=== PATIENT | female | born 1985 | race Caucasian/White ===

== ENCOUNTER 2024-07-26 11:00 | Emergency (ER) | payer BC, SELFPAY ==
[2024-07-26 11:00] VITALS: BMI 22.8
[2024-07-26 11:19] VITALS: BP 122/74; PULSE 77; RESP 18; TEMP 36.7; O2SAT 99
--- NOTE | 2024-07-26 11:29 | EDNOTE_ITS ---
<Statement entered by Jen Galvez MD - 07/26/24 17:53> As co-signing physician, I was present and available for consult prn. I concur with the plan and care as documented by the midlevel provider. ED Eye Problem RME/HPI General Chief complaint: Eye Problems Stated complaint: POKED IN RIGHT EYE LAST NIGHT Time Seen by Provider: 07/26/24 11:19 Arrival date/time: 07/26/24 11:00 38-year-old female presents emerged part today stating she was poked in the right eye last night by her child accidentally with his fingernail she reports right eye irritation today Limitations: no limitations Related Data Previous Rx's ?Medication ?Instructions ?Recorded tobramycin 0.3 % eye drops 2 drp ophthalmic (eye) Q4H 5 days 07/26/24 #5 mL Allergies Allergy/AdvReac Type Severity Reaction Status Date / Time hydrocodone [From Vicodin] Allergy Severe Shakiness Verified 07/26/24 11:02 Review of Systems Review of Systems Systems Reviewed: All systems reviewed, normal except as documented Constitutional Constitutional: Reports system reviewed and no additional complaints, except as documented, Denies fever(s) and Denies headache(s) Eyes Eyes: Reports system reviewed and no additional complaints, except as documented, Denies blurry vision and Reports irritation ENT Ears, Nose, Mouth, and Throat: Reports system reviewed and no additional complaints, except as documented, Denies headache(s), Denies nasal congestion and Denies nasal discharge Cardiovascular Cardiovascular: Reports system reviewed and no additional complaints, except as documented, Denies chest pain and Denies dyspnea Respiratory Respiratory: Reports system reviewed and no additional complaints, except as documented, Denies chest congestion, Denies cough and Denies dyspnea Gastrointestinal Gastrointestinal: Reports system reviewed and no additional complaints, except as documented and Denies abdominal pain Integumentary/Breasts Skin/Breast: Reports system reviewed and no additional complaints, except as documented and Denies rash Neurologic Neurologic: Reports system reviewed and no additional complaints, except as documented, Reports as per HPI and Denies headache(s) Past Medical History Past Medical History NEUROLOGIC: Negative Neurological Disorders CARDIAC: Negative Cardiac Disorders Social History SMOKING STATUS: Never smoker ED Exam General Limitations: Present no limitations General appearance: Present alert and in no apparent distress Head Head exam: Present atraumatic Eye Eye exam: Present normal appearance, PERRL and EOMI ENT ENT exam: Present normal exam, normal oropharynx and mucous membranes moist Neck Neck exam: Present normal inspection, full ROM and trachea midline Chest Chest inspection: Present normal inspection and symmetric chest wall rise Respiratory Respiratory exam: Present normal lung sounds bilaterally Cardiovascular Cardiovascular exam: Present regular rate, normal rhythm and normal heart sounds Abdominal Exam Abdominal exam: Present soft and normal bowel sounds Extremities Exam Extremities exam: Present normal inspection and full ROM Back Exam Back exam: Present normal inspection and full ROM Neurological Exam Neurological exam: Present alert, oriented X3 and CN II-XII intact Psychiatric Psychiatric exam: Present normal affect and normal mood Skin Skin exam: Present warm, dry, intact and normal color Course Quality Measures none Orders Category Date Time Status ED Eye Irrigation ONCE Care 07/26/24 11:26 Active Castillo Lamp to Bedside X1 Care 07/26/24 11:26 Completed Erythromycin Op Oint 0.5% Med 07/26/24 11:28 Discontinued 1 gm RIGHT EYE X1 ONE Fluorescein Sodium [[id number]] Med 07/26/24 11:26 Discontinued 1 mg RIGHT EYE X1 ONE TETRACAINE Op Carissa 0.5% [Pontocaine Op Carissa 0.5%] Med 07/26/24 11:26 Disconti nued 1 drop RIGHT EYE X1 ONE Vital Signs Vital signs: Vital Signs Temperature 98.0 F 07/26/24 11:19 Pulse Rate 77 07/26/24 11:19 Respiratory Rate 18 07/26/24 11:19 Blood Pressure 122/74 07/26/24 11:19 Pulse Oximetry (%) 99 07/26/24 11:19 Oxygen Delivery Method Room Air 07/26/24 11:19 O2 saturation 99% room air within normal limits Procedures -ED Castillo Lamp Exam Right eye: Flourescein uptake:: Yes Castillo Lamp Findings: Corneal abrasion Eye MDM Narrative MDM Narrative:: 38-year-old female presents emerged part today stating she was poked in the right eye last night by her child accidentally with his fingernail she reports right eye irritation today On exam patient has conjunctival injection no hyphema no difficulty with vision Visual acuity performed Tetracaine applied to right eye patient is now able to open eye without difficulty Was lamp exam performed patient does have a small: Abrasion to the 3 o'clock position no pupil involvement Patient given first dose of antibiotics here discharged home antibiotics Patient has strict instructions to follow-up with her eye doctor soon as possible for worsening symptoms return immediately Patient data External records reviewed:: [facility] previous records Clinical information provided by:: patient Social determinants that could affect healthcare access:: none Patient has the following chronic illnesses:: None How is presenting disease/condition affected by chronic disease/condition?: no chronic disease Evaluation data The following diagnostics were reviewed and interpreted by me:: other (specify) (N/A) Lab and/or radiology exams considered but not ordered:: Consider not ordered Interpretation Summary: N/A Medications / Prescriptions Medications or Prescriptions considered but not ordered:: Given Medication administrations:: Medication Administration History Discontinued Medications Erythromycin (Erythromycin Op Oint 0.5% 1 Gm Packet) 1 gm RIGHT EYE X1 ONE Stop: 07/26/24 11:29 Last Admin: 07/26/24 11:32 Dose: 1 gm Documented By: FELISHA Co-signed By: ELOINA Fluorescein Sodium (Fluorescein Sod 1 Mg Strp) 1 mg RIGHT EYE X1 ONE Stop: 07/26/24 11:27 Last Admin: 07/26/24 11:32 Dose: 1 mg Documented By: FELISHA Tetracaine HCl (Tetracaine Pf Op Carissa 0.5% 4 Ml Drpette) 1 drop RIGHT EYE X1 ONE Stop: 07/26/24 11:27 Last Admin: 07/26/24 11:32 Dose: 1 drop Documented By: FELISHA Given Consultations Consultation(s) initiated? (list below): No Diagnosis Eye Problem Differential Diagnosis: corneal abrasion, hyphema, subconjunctival hemorrhage and corneal ulcer Most likely diagnosis given after review of the tests above:: Corneal abrasion Admission Indicated Admission indicated?: not indicated Admission Request Was there a request for admission?: No Disposition Plan Disposition Plan: Discharge Discharge Attestation Discharge Attestation: The patient and all family members were given an opportunity to ask questions and understood the discharge instructions. Discharge instructions specifically effects, indications for sooner follow up or return to the emergency department, and the expected course of current diagnosis. Patient condition: Stable Discharge Plan Plan Patient Disposition: HOME (Self Care) Disposition Comment: Stable Prescriptions/Referrals Prescriptions/Med Rec: New tobramycin 0.3 % drops 2 drp ophthalmic (eye) Q4H 5 Days Qty: 5 0RF Problem List Clinical Impression: Corneal abrasion Patient/Caregiver Discharge Instructions Education Materials: Corneal Injury Additional Instructions: Please follow up with eye doctor soon as possible for worsening symptoms return immediately Print Language: Persian Stand Alone Forms: Adali Award Info., Work/School Release, Patient Portal Info Letter PA/SAFETY AND SKILL BASED PAY MANAGER Supervising Physician PA/SAFETY AND SKILL BASED PAY MANAGER Supervising Physician: Dr. GALVEZ
[2024-07-26] MEDS: Erythromycin Op Oint 0.5% 1 GM PACKET RIGHT EYE (11:32)
[2024-07-26] MEDS: TETRACAINE PF OP SOL 0.5% 4 ML DRPETTE 1 DROP RIGHT EYE (11:32)
[2024-07-26] MEDS: FLUORESCEIN SOD 1 MG STRP RIGHT EYE (11:32)
== END 2024-07-26 11:48 | disposition home or self-care (01) ==
LOC: SERX 11:53
PROVIDERS: Emergency Provider Emergency Medicine
DX: S05.01XA Injury of conjunctiva and corneal abrasion without foreign body, right eye, initial encounter (principal); X58.XXXA Exposure to other specified factors, initial encounter
CPT/HCPCS: 99283; A9270